=== PATIENT | female | born 1980 | race Caucasian/White ===

== ENCOUNTER 2016-08-03 16:49 | Emergency (ER) | payer OTHER, MEDICAID ==
[~2016-08-03] VITALS: Ht 152.4 cm; Wt 68.2 kg
[~2016-08-03 16:49] MED LIST: BUT/APAP/CAFF/C1 CAP PO; COLACE100 MG PO; COLON HEALTH PO; DEXAMETHAS0.5 MG/5 M; DEXAMETHASONE4 MG PO; EC NAPROSYN500 MG PO; LAC PO; MAC100 PO; MOBIC7.5 MG PO; MORPHINE SULFAT15 MG; MSC30 PO; OXYCODONE HCL10 MG PO; PANTOPRAZOLE SO40 M1 PO; PROTONIX40 MG PO; T3 PO; TOPAMAX25 MG; ZOFRAN ODT8 MG PO; ZOFRAN8 MG PO
[2016-08-03 17:46] LABS: microscopic required? YES; urine erythrocyte 2+ (NEGATIVE)
[2016-08-03 17:48] LABS: PLATELET COUNT 161 x10^3mcL (130-400); RED CELL DISTRIBUTION WIDTH 14.3 % (11.5-14.5)
[2016-08-03 17:59] LABS: CARBON DIOXIDE 28.5 mmol/L (21-32); CHLORIDE SERUM 104 mmol/L (98-107); CREATININE SERUM 0.6 mg/dL (0.6-1.0); GFR1 > 60 mL/min; GLUCOSE SERUM 96 mg/dL (74-106); POTASSIUM SERUM 3.2 mmol/L (3.5-5.1); SODIUM SERUM 141 mmol/L (136-145)
[2016-08-03 18:01] LABS: MONOCYTE 4 % (0-7); SEGMENTED NEUTROPHILS 56 % (37-75); rbc morphology (normal/abnorm) NORMAL (NORMAL)
[2016-08-03 18:04] LABS: ALBUMIN 4.1 g/dL (3.4-5.0); ALKALINE PHOSPHATASE 37 U/L (46-116); ALT/SGPT 19 U/L (14-59); AST/SGOT 18 U/L (15-37); BILIRUBIN TOTAL 0.8 mg/dL (0.20-1.00); TOTAL PROTEIN, SERUM 7.1 g/dL (6.4-8.2)
[2016-08-03 19:55] VITALS: BP 110/70
== END 2016-08-03 19:55 | disposition home or self-care (01) ==
LOC: ED 16:49
PROVIDERS: Emergency Medicine
DX: M79.1 Myalgia (principal); N39.0 Urinary tract infection, site not specified; Z85.3 Personal history of malignant neoplasm of breast; Z90.12 Acquired absence of left breast and nipple; Z88.8 Allergy status to other drugs, medicaments and biological substances
CPT/HCPCS: 83880; J0696; J1170; J2405; J7030; Q0092

== ENCOUNTER 2016-09-02 19:28 | Emergency (ER) | payer OTHER, MEDICAID ==
[~2016-09-02] VITALS: Ht 152.4 cm; Wt 70.8 kg
[2016-09-02 22:33] VITALS: BP 110/59
== END 2016-09-02 22:33 | disposition home or self-care (01) ==
LOC: ED 19:28
DX: R51 Headache (principal); C71.9 Malignant neoplasm of brain, unspecified; Z90.10 Acquired absence of unspecified breast and nipple
CPT/HCPCS: J1170; J1200; J2765; J7030

== ENCOUNTER 2016-10-06 17:51 | Emergency (ER) | payer OTHER, MEDICAID ==
[~2016-10-06] VITALS: Ht 152.4 cm; Wt 70.8 kg
[2016-10-06 19:23] LABS: CALCIUM 9.5 mg/dL (8.5-10.1); CARBON DIOXIDE 31.7 mmol/L (21-32); CHLORIDE SERUM 95 mmol/L (98-107); CREATININE SERUM 0.7 mg/dL (0.6-1.0); GFR1 > 60 mL/min; GLUCOSE SERUM 123 mg/dL (74-106); POTASSIUM SERUM 4.3 mmol/L (3.5-5.1); SODIUM SERUM 137 mmol/L (136-145)
[2016-10-06 19:27] LABS: ALBUMIN 3.6 g/dL (3.4-5.0); ALKALINE PHOSPHATASE 39 U/L (46-116); ALT/SGPT 36 U/L (14-59); AST/SGOT 29 U/L (15-37); BILIRUBIN TOTAL 0.4 mg/dL (0.20-1.00); TOTAL PROTEIN, SERUM 7.2 g/dL (6.4-8.2)
[2016-10-06 19:35] LABS: PLATELET COUNT 353 x10^3mcL (130-400)
[2016-10-06 19:37] LABS: BASOPHIL % 0 % (0-2); RED CELL DISTRIBUTION WIDTH 15.1 % (11.5-14.5)
[2016-10-06 22:54] VITALS: BP 104/64
== END 2016-10-06 22:54 | disposition home or self-care (01) ==
LOC: ED 17:51
PROVIDERS: Emergency Medicine
DX: R11.10 Vomiting, unspecified (principal); G89.29 Other chronic pain; M19.90 Unspecified osteoarthritis, unspecified site; G43.909 Migraine, unspecified, not intractable, without status migrainosus; Z88.5 Allergy status to narcotic agent; Z88.6 Allergy status to analgesic agent; Z88.8 Allergy status to other drugs, medicaments and biological substances; Z85.841 Personal history of malignant neoplasm of brain
CPT/HCPCS: J1170; J2270; J2405; J7030

== ENCOUNTER 2017-03-12 19:09 | Emergency (ER) | payer OTHER, MEDICAID ==
[2017-03-12 21:24] VITALS: BP 109/71
== END 2017-03-12 21:55 | disposition home or self-care (01) ==
LOC: ED 19:09
DX: G89.29 Other chronic pain (principal); M54.5 Low back pain; C50.919 Malignant neoplasm of unspecified site of unspecified female breast
CPT/HCPCS: J1170; Q0162

== ENCOUNTER 2017-03-14 03:05 | Emergency (ER) | payer OTHER, MEDICAID ==
[2017-03-14 06:04] LABS: CALCIUM 9.2 mg/dL (8.5-10.1); CARBON DIOXIDE 33.6 mmol/L (21-32); CHLORIDE SERUM 101 mmol/L (98-107); CREATININE SERUM 0.8 mg/dL (0.6-1.0); GFR1 > 60 mL/min; GLUCOSE SERUM 101 mg/dL (74-106); POTASSIUM SERUM 3.1 mmol/L (3.5-5.1); SODIUM SERUM 140 mmol/L (136-145)
[2017-03-14 06:09] LABS: ALBUMIN 3.4 g/dL (3.4-5.0); ALKALINE PHOSPHATASE 66 U/L (46-116); ALT/SGPT 29 U/L (14-59); AST/SGOT 32 U/L (15-37); BILIRUBIN TOTAL 0.87 mg/dL (0.20-1.00); TOTAL PROTEIN, SERUM 6.5 g/dL (6.4-8.2)
[2017-03-14 06:15] LABS: PLATELET COUNT 21 x10^3mcL (130-400); RED CELL DISTRIBUTION WIDTH 22.2 % (11.5-14.5)
[2017-03-14 06:20] LABS: BAND NEUTROPHIL 9 % (0-10); METAMYELOCTE 7 % (0-2); MONOCYTE 11 % (0-7); MYELOCYTE 1 % (0-2); SEGMENTED NEUTROPHILS 67 % (37-75)
[2017-03-14 06:24] LABS: rbc morphology (normal/abnorm) ABNORMAL (NORMAL); tear drop cell (dacryocyte) 1+
[2017-03-14 06:25] LABS: PLATELET MORPHOLOGY PLATELETS DECREASED
[2017-03-14 11:18] VITALS: BP 112/65
== END 2017-03-14 11:18 | disposition short-term general hospital (02) ==
LOC: ED 03:05
PROVIDERS: Emergency Medicine
DX: M84.58XA Pathological fracture in neoplastic disease, other specified site, initial encounter for fracture (principal); C79.31 Secondary malignant neoplasm of brain; C80.1 Malignant (primary) neoplasm, unspecified; G89.29 Other chronic pain; M19.90 Unspecified osteoarthritis, unspecified site; Z88.5 Allergy status to narcotic agent; Z88.8 Allergy status to other drugs, medicaments and biological substances
CPT/HCPCS: 36415; J1170